=== PATIENT | male | born 1950 | race Caucasian/White ===

== ENCOUNTER 2024-12-29 14:28 | Emergency (ER) | payer BC ==
[~2024-12-29] VITALS: Ht 177.8 cm; Wt 75.0 kg
[~2024-12-29 14:28] MED LIST: ATOR10TA PO; Apixaban Base PO; BUDE160A3 INH; CLON0.1T PO; FELO10TA28 OR; FURO40TA4 PO; GABA-1250 PO; GLYB2.5T9 PO; LISI-275 PO; METF-370 PO; POT10T PO; TERA1CAP52 PO; TRAV0.00 EACHEYE; [UNRECOGNIZED DRUG - OTHER]
--- NOTE | 2024-12-29 15:03 | ED.PDOC ---
GI ASSESSMENT HPI Comments 74y M who presents to the ED for chief complaint of abdominal pain. Pt states he has protrusion by his umbilicus and states area around umbilicus is causing him pain since yesterday. Pt states he noted bleeding around umbilicus and came today for evaluation. Pt in the ED, has noted controlled bleeding. Pt denies any other symptoms at this time. Chief Complaint: Abdominal Pain Time Seen by MD: 15:01 Primary Care Provider: OOA Reviewed Notes: Medications, Allergies Allergies: Coded Allergies: NO KNOWN ALLERGIES (Unverified , 06/26/10) Home Meds Active Scripts Clindamycin Hcl (Clindamycin Hcl) 300 Mg Cap, 1 CAP PO TID, #21 CAP Prov:CHRISTIAN DIANE MD 12/29/24 [Apixaban Base] 5 MG TB No Conflict Check, 10 MG PO BID, #12 Prov:MAINE MARTINEZ MD 05/23/15 [Apixaban Base] 5 MG TB No Conflict Check, 5 MG PO BID, #60 Prov:MAINE MARTINEZ MD 05/23/15 Reported Medications [Levabunalol] No Conflict Check 06/21/14 Travoprost (Travatan Z) 0.004 % Blu, 1 DROP EACHEYE QPM 06/21/14 Glyburide (Micronase) 2.5 Mg Tb, 2.5 TAB PO DAILY 06/21/14 Clonidine Hydrochloride (Clonidine Hcl) 0.1 Mg Tab, 0.1 MG PO, TAB 06/21/14 Furosemide (Furosemide) 40 Mg Tab, 1 TAB PO DAILY 06/21/14 Budesonide-Formoterol Fumarate (Symbicort) 1 Aer Aer, 2 PUFF INH BID, #10.6 GRAMS 3 Refills 06/21/14 Potassium Chloride (KLOR-CON TABLET) 10 Meq Tb, 8 MEQ PO DAILY, #30 TAB 5 Refills 06/21/14 Gabapentin (Gabapentin) 300 Mg Cap, 300 CAP PO TID 06/21/14 Felodipine (Felodipine Er) 10 Mg Tab, 10 MG OR QAM 01/07/11 Terazosin Hcl (Terazosin Hcl) 1 Mg Cap, 1 MG PO HS 01/07/11 Atorvastatin Calcium (Lipitor) 10 Mg Tab, 1 TAB PO DAILY 06/26/10 Metformin Hydrochloride (Metformin Hcl) 500 Mg Tab, 2 TAB PO BID 06/26/10 Lisinopril (Lisinopril) 5 Mg Tab, 40 MG PO DAILY 06/26/10 Information Source: Patient Mode of Arrival: Ambulatory Brought in by: self Timing: Hours Duration: Since onset Prehospital treatment: None Quality: None Vomitus: None Stool: Normal Severity: Moderate Recent: None Recent Hx of: None Pain Location: Periumbilical Modifying Factors: Nothing Associated sign and symptoms: Abdominal Pain Past Medical History PAST MEDICAL HISTORY: COPD, CVA, DM, High Lipids, HTN, TIA Surgical History: Appendectomy, Tonsillectomy Surgical History (Other): knee surgery Family History Family History: Unobtainable Social History Smoker: Quit Greater Than 1 Year, Cigarettes Alcohol: Occasionally Drugs: Marijuana Lives In: Home Constitutional: denies: chills, diaphoresis, fatigue, fever, malaise, sweats, weakness, others EENTM: denies: blurred vision, double vision, ear bleeding, ear discharge, ear drainage, ear pain, ear ringing, eye pain, eye redness, hearing loss, mouth pain, mouth swelling, nasal discharge, nose bleeding, nose congestion, nose pain, photophobia, tearing, throat pain, throat swelling, voice changes, others Respiratory: denies: cough, hemoptysis, orthopnea, SOB at rest, shortness of breath, SOB with excertion, stridor, wheezing, others Cardiovascular: denies: chest pain, dizzy spells, diaphoresis, Dyspnea on exertion, edema, irregular heart beat, left arm pain, lightheadedness, palpitations, PND, syncope, others Gastrointestinal: reports: abdominal pain; denies: abdomen distended, blood streaked bowels, constipated, diarrhea, dysphagia, difficulty swallowing, hematemesis, melena, nausea, poor appetite, poor fluid intake, rectal bleeding, rectal pain, vomiting, others Genitourinary: denies: burning, dysuria, flank pain, frequency, hematuria, incontinence, penile discharge, penile sore, pain, testicle pain, testicle swelling, urgency, others Neurological: denies: dizziness, fainting, headache, left sided numbness, left sided weakness, numbness, paresthesia, pre-existing deficit, right sided numbness, right sided weakness, seizure, speech problems, tingling, tremors, weakness, others Musculoskeletal: denies: back pain, gout, joint pain, joint swelling, muscle pain, muscle stiffness, neck pain, others Integumetry: denies: bruises, change in color, change in hair/nails, dryness, laceration, lesions, lumps, rash, wounds, others Allergic/Immunocompromised: denies: Difficulty Healing, Frequent Infections, Hives, Itching, others Hematologic/Lymphatic: denies: anemia, blood clots, easy bleeding, easy bruising, swollen glands, others Endocrine: denies: excessive hunger, excessive sweating, excessive thirst, excessive urination, flushing, intolerance to cold, intolerance to heat, unexplained weight gain, unexplained weight loss, others Psychiatric: denies: anxiety, bipolar disorder, depression, hopeless, panic disorder, schizophrenia, sleepless, suicidal, others All Other Systems: Reviewed and Negative Physical Exam General Appearance: No Apparent Distress HEENT: Normal ENT Inspection, Pharynx Normal, TMs Normal Neck: Full Range of Motion, Non-Tender, Normal, Normal Inspection Respiratory: Chest Non-Tender, Lungs Clear, No Accessory Muscle Use, No Respiratory Distress, Normal Breath Sounds Cardiovascular: No Edema, No JVD, No Murmur, No Gallop, Normal Peripheral Pulses, Regular Rate/Rhythm Breast Exam: Deferred Gastrointestinal: No Organomegaly, Non Tender, No Pulsatile Mass, Normal Bowel Sounds, Soft, Other (The patient does have redness around the umbilical region that has consistent with possible cellulitis but no sign of any fluctuance) Genitalia: Deferred Pelvic: Deferred Rectal: Deferred Extremities: No calf tenderness, Normal capillary refill, No pedal edema Musculoskeletal : Apperance: Normal Neurologic: Alert, stationary engineer refrigeration II-XII nml as Tested, No Motor Deficits, Normal Affect, Normal Mood, No Sensory Deficits Cerebellar Function: Normal Reflexes: Normal Skin: Dry, Normal Color, Warm Lymphatic: No Adenopathy Was a procedure done? Was a procedure done?: No GI differential Dx Differential Diagnosis: Gastritis/PUD, Gastroenteritis, GI hemorrhage, Hernia, Inflammatory BD, Dehydration, Stress Ulcer X-Ray, Labs, Meds, VS Vital Signs Date Time Temp Pulse Resp B/P (MAP) Pulse Ox O2 Delivery O2 Flow Rate FiO2 12/29/24 14:29 97.5 64 18 133/81 97 97.5 Lab Test 12/29/24 15:09 Range/Units White Blood Count 8.2 4.4-10.8 10^3/uL Red Blood Count 4.31 L 4.5-5.90 10^6/uL Hemoglobin 13.8 13.5-17.5 g/dL Hematocrit 40.2 L 41.0-53.0 % Mean Corpuscular Volume 93.2 80.0-100.0 fL Mean Corpuscular Hemoglobin 32.0 28.0-32.0 pg Mean Corpuscular Hemoglobin Concent 34.4 32.0-36.0 g/dL Red Cell Distribution Width 13.8 11.8-14.3 % Platelet Count 186 140-450 10^3/uL Mean Platelet Volume 7.5 6.9-10.8 fL Neutrophils (%) (Auto) 66.0 37.0-80.0 % Lymphocytes (%) (Auto) 24.5 10.0-50.0 % Monocytes (%) (Auto) 6.7 0.0-12.0 % Eosinophils (%) (Auto) 2.0 0.0-7.0 % Basophils (%) (Auto) 0.8 0.0-2.0 % Neutrophils # (Auto) 5.4 1.6-8.6 10 ^3/uL Lymphocytes # (Auto) 2.0 0.4-5.4 10 ^3/uL Monocytes # (Auto) 0.5 0-1.3 10 ^3/uL Eosinophils # (Auto) 0.2 0-0.8 10 ^3/uL Basophils # (Auto) 0.1 0-0.2 10 ^3/uL Nucleated Red Blood Cells 0.0 % Sodium Level 145 136-145 mmol/L Potassium Level 4.0 3.5-5.1 mmol/L Chloride Level 108 H 98-107 mmol/L Carbon Dioxide Level 29 20-31 mmol/L Anion Gap 8 5-15 Blood Urea Nitrogen 30 H 9-23 mg/dL Creatinine 1.25 0.700-1.30 mg/dL Glomerular Filtration Rate Calc 61 >90 mL/min BUN/Creatinine Ratio 24.0 H 10.0-20.0 Serum Glucose 134 H 74-106 mg/dL Calcium Level 9.5 8.7-10.4 mg/dL PROCEDURE(s): ABPL - CT AB PEL WO CON-NO ORAL OR IV Impression: No acute noncontrast CT abnormality in the abdomen or pelvis. Mild colonic diverticulosis. [id number]-llgigeg-[id number]-right lower lung bronchiolitis. 3-vessel coronary artery calcifications At this time the CBC is within normal limits The chemistry panel is within normal limits The patient will be discharged with a diagnosis of cellulitis to be abdominal area The patient given a prescription of clindamycin Images Reviewed?: Images reviewed and evaluated by me Time of 1ST Reevaluation: 15:30 Reevaluation 1ST: Unchanged Time of 2ND Reevaluation: 18:28 Reevaluation 2ND: Unchanged Patient Education/Counseling: Diagnosis, Treatment, Prognosis, Need For Follow Up Family Education/Counseling: No Family Present SEPSIS Sepsis Screen Date sepsis recognized/suspect: Dec 29, 2024 Time Sepsis recognized/suspect: 1431 Recent Procedure: No On Antibiotic Therapy: No Respiratory Rate >20: No Heart Rate >90: No Temp<36 C (96.8 F) or >38.3 C: No SBP <90 or MAP <65 mmHG: No New Acute Mental Status Change: No Is the patient on CPAP, BIPAP,: No Physician Orders Ct Ab Pel Wo Con-No Oral Or Iv (12/29/24 14:57) Vital Signs Date Time Temp Pulse Resp B/P (MAP) Pulse Ox O2 Delivery O2 Flow Rate FiO2 12/29/24 14:29 97.5 64 18 133/81 97 97.5 Laboratory Tests Test 12/29/24 15:09 White Blood Count 8.2 10^3/uL (4.4-10.8) Departure 1 Departure Time of Disposition: 18:28 Impression: Primary Impression: Abdominal wall cellulitis Disposition: 01 HOME / SELF CARE / HOMELESS Condition: Fair e-Prescriptions Clindamycin Hcl (Clindamycin Hcl) 300 Mg Cap 1 CAP PO TID, #21 CAP Prov: CHRISTIAN DIANE MD 12/29/24 Discharged With: Self Critical Care Note Critical Care Time?: No Stability Stability form required: No Heart Score Heart Score: Heart Score Response (Comments) Value History N/A 0 EKG N/A 0 Age N/A 0 Risk Factors N/A 0 Troponin N/A 0 Total 0 I personally scribed for CHRISTIAN DIANE MD ([email or web address]) on 12/29/24 at 15:03. Electronically submitted by Isaias Acharya ([email or web address]). I personally scribed for CHRISTIAN DIANE MD ([email or web address]) on 12/29/24 at 15:41. Electronically submitted by Isaias Acharya ([email or web address]). CHRISTIAN DIANE MD Dec 29, 2024 15:03
[2024-12-29 15:17] LABS: Hematocrit 40.2 % (41.0-53.0); Hemoglobin 13.8 g/dL (13.5-17.5); Mean Corpuscular Hemoglobin 32.0 pg (28.0-32.0); Mean Corpuscular Volume 93.2 fL (80.0-100.0); Nucleated Red Blood Cells % 0.0 %
[2024-12-29 15:27] LABS: Potassium 4.0 mmol/L (3.5-5.1)
[2024-12-29 15:28] LABS: Anion Gap 8 (5-15); Carbon Dioxide 29 mmol/L (20-31)
[2024-12-29 15:29] LABS: Calcium 9.5 mg/dL (8.7-10.4)
[2024-12-29 15:31] LABS: Chloride 108 mmol/L (98-107); Sodium 145 mmol/L (136-145)
[2024-12-29 15:34] LABS: BUN/Creatinine Ratio 24.0 (10.0-20.0); Blood Urea Nitrogen 30 mg/dL (9-23); Glucose 134 mg/dL (74-106)
--- NOTE | 2024-12-29 15:35 | DVH ---
CLINICAL HISTORY: pain TECHNIQUE: CT of the abdomen and pelvis was performed without IV contrast. This exam was performed ac cording to our departmental dose optimization program. Up-to-date CT equipment and radiation dose red uction techniques are utilized as appropriate. CTDI 6.9 DLP 429 COMPARISON: None FINDINGS: Abdomen/Pelvis: The spleen, pancreas, gallbladder, liver, adrenal glands, and bladder are grossly unremarkable. Hypodense lesions in both kidneys incompletely characterized due to lack of IV contrast. The prostate gland is moderately enlarged, measuring 5.1 cm in diameter. The abdominal aorta is normal in caliber with mild atherosclerotic calcifications. There is no free intraperitoneal air or fluid. There is no enlarged abdominal pelvic lymph node. There is no bowel wall thickening or dilatation. The appendix is normal. There is mild colonic divert iculosis. Other: The imaged lower thorax demonstrates [id number]-right lower lung tree-in-bud nodularity. There are 3-vessel coronary artery calcifications. No acute osseous abnormality is evident. Impression: No acute noncontrast CT abnormality in the abdomen or pelvis. Mild colonic diverticulosis. Kuhh-lxyjfsm-[id number]-right lower lung bronchiolitis. 3-vessel coronary artery calcifications
[2024-12-29] MEDS ORDERED: CLIN1CAP70 PO (18:29)
[2024-12-29 19:10] VITALS: BP 141/69; PULSE 65; RESP 18; TEMP 97.6
[2024-12-29 19:43] VITALS: O2SAT 98
[2024-12-29] MEDS: CLINDAMYCIN HCL 150 MG CAP PO ONE (19:47)
== END 2024-12-29 19:43 | disposition home or self-care (01) ==
LOC: ER 14:33
DX: L03.311 Cellulitis of abdominal wall (principal); F12.90 Cannabis use, unspecified, uncomplicated; F10.90 Alcohol use, unspecified, uncomplicated; I25.10 Atherosclerotic heart disease of native coronary artery without angina pectoris; E11.9 Type 2 diabetes mellitus without complications; I10 Essential (primary) hypertension; J21.9 Acute bronchiolitis, unspecified; J44.0 Chronic obstructive pulmonary disease with (acute) lower respiratory infection; Z87.891 Personal history of nicotine dependence; Z90.89 Acquired absence of other organs; Z90.49 Acquired absence of other specified parts of digestive tract; Z86.73 Personal history of transient ischemic attack (TIA), and cerebral infarction without residual deficits; Z79.899 Other long term (current) drug therapy; Z79.84 Long term (current) use of oral hypoglycemic drugs; Z79.51 Long term (current) use of inhaled steroids; Y90.9 Presence of alcohol in blood, level not specified
CPT/HCPCS: 36415; 74176; 80048; 85025